=== PATIENT | male | born 1995 | race American Indian/Alaskan Native ===

== ENCOUNTER 2017-03-18 08:22 | Emergency (ER) | payer BC, OTHER ==
[~2017-03-18] VITALS: Ht 177.8 cm; Wt 68.0 kg
[~2017-03-18 08:22] MED LIST: NAPROSYN500 MG PO; NORCO 10-325 T1 EACH PO
== END 2017-03-18 10:35 | disposition home or self-care (01) ==
LOC: ED 08:22
DX: S43.402A Unspecified sprain of left shoulder joint, initial encounter (principal); F17.200 Nicotine dependence, unspecified, uncomplicated; X58.XXXA Exposure to other specified factors, initial encounter; Z88.1 Allergy status to other antibiotic agents
CPT/HCPCS: 73030; 99283